=== PATIENT | female | born 2000 | race Caucasian/White ===

== ENCOUNTER 2020-06-09 17:50 | Emergency (ER) | payer OTHER, SELFPAY ==
[2020-06-09 18:15] VITALS: BP 124/75; PULSE 99; RESP 16; TEMP 37.2; O2SAT 98
--- NOTE | 2020-06-09 18:15 | DI.RAD.S_ITS ---
PROCEDURE: XR CHEST 2V INDICATIONS: shortness of breath TECHNIQUE: 2 views of the chest were acquired. COMPARISON: None. FINDINGS: Surgical changes and devices: None. Lungs and pleura: Lungs are clear. No pleural effusions or pneumothorax. Mediastinum: Mediastinal contours are normal. Heart size is normal. Bones and chest wall: No suspicious bony abnormalities. Minimal levoconvex scoliotic curvature is seen. Soft tissues appear unremarkable. IMPRESSION: Clear lungs. No infiltrate or pneumothorax. Dictated by: Romulo Liz M.D. on 06/09/2020 at 17:31 Approved by: Romulo Liz M.D. on 06/09/2020 at 17:32
--- NOTE | 2020-06-09 20:09 | ED.URI ---
HPI - URI/Sore Throat <YOLIS Diaz - Last Filed: 06/10/20 00:18> General Chief Complaint: Upper Respiratory Symptoms Stated Complaint: cough,does not know what it is. Time Seen by Provider: 06/09/20 19:34 Source: patient Mode of arrival: Ambulatory Limitations: no limitations History of Present Illness HPI Narrative: This is a 20-year-old female, nonsmoker, who has noncontributing medical history presents to ED with her spouse with chief complain of nonproductive dry cough for 2 weeks which became worse for last 1 week patient specially during nights. Patient reports her cough was so bad today she had to leave work. Patient denies fever, chills, nausea or vomiting, postnasal drips. Patient denies history of asthma. Patient is new in town since she moved from [place] in February to [place]. Patient denies sore throat, runny nose, ear pain, diarrhea, postnasal drips or chest pain. [place] 1 week ago with negative test result. Patient denies contact with Covid 19 positive patient. LMP last than 2 weeks ago. No primary care physician at this time. Related Data Previous Rx's Medication Instructions Recorded benzonatate [Tessalon Perles] 100 mg PO TID PRN #10 cap 06/09/20 Allergies Allergy/AdvReac Type Severity Reaction Status Date / Time No Known Drug Allergies Allergy Verified 06/09/20 18:17 Review of Systems <YOLIS Diaz - Last Filed: 06/10/20 00:18> Review of Systems Narrative: General: Denies fever, chills, fatigue, malaise, sweats. HEENT: Denies sinus pain, ear pain, sore throat, difficulty swallowing, dizziness. Respiratory: See HPI Cardiovascular: Denies chest pain, palpitations, orthopnea, edema. Gastrointestinal: Denies nausea, vomiting, abdominal pain, diarrhea, constipation, melena. : Denies dysuria, frequency, incontinence, hematuria, urinary retention. Musculoskeletal: Denies weakness, joint pain or bony pain. Skin: Denies rash, skin lesions, or other. Neurologic: Denies weakness, headache, numbness, change in speech, confusion, seizures, incoordination. Psychiatric: No concerning psychosocial issues. 12-point review of systems is negative except for those stated above. Patient History <YOLIS Diaz - Last Filed: 06/10/20 00:18> Social History Smoking Status: Never smoker Smoking Status: Never smoker alcohol intake frequency: 0-2 drinks per day Substance Use Type: does not use Exam <YOLIS Diaz - Last Filed: 06/10/20 00:18> Narrative Exam Narrative: GEN: Alert, oriented x 3, well appearing and nourished, and in no acute distress. Head: Normal cephalic, atraumatic. No scalp or temporal tenderness, palpable mass or rash. EYES: Pupils are equal, round, and reactive to light and accommodation. Extraocular muscles are intact bilaterally. There is no subconjunctival hemorrhage, exudate and sclera non-icteric. ENT: Bilateral auditory canals semi occluded with cerumen, tympanic membranes clear. Hearing grossly intact. Nose without bleeding, purulent discharge or deviation. Facial sinuses nontender to palpate. Mucous membrane moist, no mucosal lesion. Throat without erythema, tonsillar hypertrophy or exudate. Uvula in midline, airway patent. Neck: Trachea in midline. No JVD, non-tender without lymphadenopathy. No masses or thyroid megaly. Supple, non-tender and no meningeal signs. CARDIAC: Normal regular rate and rhythm without murmurs, gallops, or rubs. No chest wall tenderness. No peripheral edema, cyanosis or pallor. Capillary refill is less than 2 seconds. RESPIRATORY: Lungs are clear to auscultate bilaterally. No cough, wheezes, rales, or rhonchi. No stridor, respiratory distress, increase work of breathing, or accessary muscle used. ABD: Abdomen soft, nontender and non-distended. No guarding or rebound tenderness to palpate. Bowel sounds are normal in all 4 quadrants. There is no palpable masses or organomegaly. EXT: Full painless ROM of all extremities with no loss of sensation, strength, effusion or edema. SKIN: Warm, dry, normal color for patient. No erythema, lesions or rash over visible areas. BACK: Nontender without deformity or crepitance. No flank tenderness. NEUROLOGICAL: Alert and oriented to place, time and person. Sensation and motor function intact bilaterally. No facial droops, dysphasia. PSYCHIATRIC: Good judgement and reason, without hallucinations, abnormal affect or abnormal behaviors during the examination. Patient is not suicidal. Initial Vital Signs Initial Vital Signs: Vital Signs Temperature 98.9 F 06/09/20 18:15 Pulse Rate 99 H 06/09/20 18:15 Respiratory Rate 16 06/09/20 18:15 Blood Pressure 124/75 06/09/20 18:15 Pulse Oximetry 98 06/09/20 18:15 <Mario Morales MD - Last Filed: 06/10/20 04:28> Initial Vital Signs Initial Vital Signs: Vital Signs Temperature 98.9 F 06/09/20 18:15 Pulse Rate 99 H 06/09/20 18:15 Respiratory Rate 16 06/09/20 18:15 Blood Pressure 124/75 06/09/20 18:15 Pulse Oximetry 98 06/09/20 18:15 Scores <YOLIS Diaz - Last Filed: 06/10/20 00:18> GCS Scroggins coma scale eye opening: Spontaneous Scroggins coma scale verbal response: Orientated Scroggins coma scale motor response: Obey commands Scroggins coma scale total score: 15 Course <YOLIS Diaz - Last Filed: 06/10/20 00:18> Orders Ordered: Discontinued Medications Albuterol (Ventolin Hfa Prepack) 1 box MISC SEEINSTR ONE Stop: 06/09/20 20:06 Last Admin: 06/09/20 20:18 Dose: 1 box Documented by: JOSEAULT Benzonatate (Tessalon Perles) 100 mg PO NOW ONE Stop: 06/09/20 20:06 Last Admin: 06/09/20 20:28 Dose: 100 mg Documented by: PAVAN Lidocaine HCl (Xylocaine 1%) 1 ml SUBCUT NOW ONE Stop: 06/09/20 19:52 Last Admin: 06/09/20 20:39 Dose: Not Given Documented by: AIDEN Vital Signs Vital signs: Vital Signs - 8 hr 06/09/20 20:51 Temperature 98.2 F Pulse Rate 87 Respiratory Rate 20 Blood Pressure 128/56 L Pulse Oximetry 97 <Mario Morales MD - Last Filed: 06/10/20 04:28> Orders Ordered: Discontinued Medications Albuterol (Ventolin Hfa Prepack) 1 box MISC SEEINSTR ONE Stop: 06/09/20 20:06 Last Admin: 06/09/20 20:18 Dose: 1 box Documented by: TEJAL Benzonatate (Tessalon Perles) 100 mg PO NOW ONE Stop: 06/09/20 20:06 Last Admin: 06/09/20 20:28 Dose: 100 mg Documented by: PAVAN Lidocaine HCl (Xylocaine 1%) 1 ml SUBCUT NOW ONE Stop: 06/09/20 19:52 Last Admin: 06/09/20 20:39 Dose: Not Given Documented by: AIDEN Vital Signs Vital signs: Vital Signs - 8 hr 06/09/20 20:51 Temperature 98.2 F Pulse Rate 87 Respiratory Rate 20 Blood Pressure 128/56 L Pulse Oximetry 97 MDM - URI/Sore Throat <Miguel YOLIS Guthrie - Last Filed: 06/10/20 00:18> Differential Diagnosis Differential diagnosis: Likely upper respiratory infection, viral infection, bronchitis and other (Allergy, Covid 19) Medical Records Attestation: I reviewed the patient's medical records. Imaging Data Chest x-ray: Radiologist's Impression: [address] [address] XRay Report Signed Patient: Rosemary Ribeiro#: [id number] : 2000Acct:[id number] Age/Sex: 20 / FDate of Service: 06/09/20 Loc: ED Accession Number: [id number] Procedure: XR chest 2V Ordering Provider: Nell Garibay MD PROCEDURE: XR CHEST 2V INDICATIONS: shortness of breath TECHNIQUE: 2 views of the chest were acquired. COMPARISON: None. FINDINGS: Surgical changes and devices: None. Lungs and pleura: Lungs are clear. No pleural effusions or pneumothorax. Mediastinum: Mediastinal contours are normal. Heart size is normal. Bones and chest wall: No suspicious bony abnormalities. Minimal levoconvex scoliotic curvature is seen. Soft tissues appear unremarkable. IMPRESSION: Clear lungs. No infiltrate or pneumothorax. Dictated by: Romulo Liz M.D. on 06/09/2020 at 17:31 Approved by: Romulo Liz M.D. on 06/09/2020 at 17:32 MDM Narrative Medical decision making narrative: This is a 20-year-old female who recently moved to [place] in February presents to ED with nonproductive dry cough for last 2 weeks which became worse last week especially during nights. Patient denies constitutional symptoms. Patient is not toxic up. Physical exam is unremarkable with clear lung sounds bilaterally with easy breathing. Patient had Covid test done about a week ago with negative test result. Patient does not have a history of asthma. Considered environmental allergy since patient is new to [facility] and no other URI symptoms reported. The patient and spouse inclined for repeating Covid test. Informed patient test results will be back in 2-5 minutes and will receive a phone call from ED and in the meantime to practice self quarantine with good hand hygiene practice. Patient treated as bronchitis this time with albuterol inhaler with a spacer and teaching was done by RT. Patient reports her symptoms improved after the albuterol. Also patient discharged to home with Tessalon cough pill. Patient advised to increase hydration and to take warm honey water for her symptoms. Return precautions were discussed with patient and patient verbalized understanding in agreement with treatment plan. Discharge Plan Departure Patient Disposition: Home Clinical Impression: Bronchitis, Cough Discharge Date/Time: 06/09/20 20:52 Instructions: DI for Acute Bronchitis, DI for COVID-19 (Suspected or Confirmed ) Activity Restrictions/Additional Instructions: You have been diagnosed with [cough likely from bronchitis. You were provided with albuterol inhaler and a spacer and medicated with Tessalon pill for cough. Also, Considered seasonal allergies since you are new in [facility] here. Covid swab is done tonight and you will receive a phone call with the resulted in next 2-5 days. Please use precautions for COVID-19 with self quarantine and using good hand hygiene.]. What to do: *Take your medications as directed. Please use albuterol inhaler with a spacer 2 puffs every 4 hours as needed for excessive cough, chest tightness, wheezing. Tessalon as needed for cough. Warm honey water helps with cough as well. *Follow up with your primary care provider in 2-3 days, call for an appointment. Let them know you were seen in the ED and that we asked you to be seen in follow up. *Return to ED if you have any new, worsening, or concerning symptoms, such as [chest pain, breathing difficulty, fever, productive cough, unable to tolerate fluids or any acute concerns.]. Prescriptions: New benzonatate [Tessalon Perles] 100 mg capsule 100 mg PO TID PRN (Reason: cough) Qty: 10 RF: 0 Referrals: [facility] [Outside] <Mario Morales MD - Last Filed: 06/10/20 04:28> Cosign ED Attending Cosignature Attestation: I was immediately available in the department for consultation. This documentation has been reviewed and I agree with assessment and plan. Supervised by Mario Morales MD
[2020-06-09 20:18] VITALS: RESP 16
[2020-06-09] MEDS: ALBUTEROL HFA PREPACK 1 BOX MISC (20:18)
[2020-06-09] MEDS: BENZONATATE 100 MG CAPSULE PO (20:28)
[2020-06-09 20:51] VITALS: BP 128/56; PULSE 87; RESP 20; TEMP 36.8; O2SAT 97
[2020-06-11 12:12] LABS: COVID19 Sendout Not Detected (Not Detected)
== END 2020-06-09 20:52 | disposition home or self-care (01) ==
PROVIDERS: Emergency Provider Nurse Practitioner Family
DX: J40 Bronchitis, not specified as acute or chronic (principal)
CPT/HCPCS: 71046; 87635; 94640; 99283

== ENCOUNTER 2021-04-27 13:17 | Observation (INO) | payer OTHER, SELFPAY ==
[2021-04-27 13:26] VITALS: BP 126/74; PULSE 90; RESP 16; TEMP 37.3; O2SAT 97
[2021-04-27 13:53] LABS: Add Manual Diff / Slide Review NO; Basophils Absolute Auto 0 /uL (0-100); Basophils Percent Auto 0.2 % (0-2); Eosinophils Absolute Auto 0 /uL (0-450); Eosinophils Percent Auto 0.2 % (2-4); Hematocrit 43.2 % (36-46); Hemoglobin 14.2 g/dL (12.0-16.0); Lymphocytes Absolute Auto 1200 /uL (1100-4500); Lymphocytes Percent Auto 8.3 % (25-40); Mean Corpuscular HGB Conc 32.9 % (30-36); Mean Corpuscular Hemoglobin 30.4 PG (26-34); Mean Corpuscular Volume 92.4 fL (80-100); Monocytes Absolute Auto 900 /uL (0-900); Monocytes Percent Auto 6.3 % (3-14); Neutrophils Absolute Auto 12200 /uL (1500-7000); Platelet Count 262 X10^3/uL (150-400); Red Blood Cell Count 4.67 X10^6/uL (4.0-5.2); Red Cell Distribution Width 13.2 % (11.6-14.8); White Blood Cell Count 14.4 X10^3/uL (4.5-11.0)
[2021-04-27 14:04] LABS: Alanine Aminotransferase 16 IU/L (<35); Albumin 4.7 g/dL (3.5-5.0); Albumin Globulin Ratio 1.5 (1.0-2.8); Alkaline Phosphatase 51 U/L (38-126); Aspartate Aminotransferase 27 IU/L (14-36); BUN Creatinine Ratio 15.4 (6-22); Bilirubin Total 0.7 mg/dL (0.2-1.3); Blood Urea Nitrogen 10 mg/dL (7-17); Carbon Dioxide 24 mmol/L (22-32); Chloride 105 mmol/L (98-107); Estimated Glomerular Filt Rate > 60.0 mL/min (>60); Globulin 3.2 g/dL (1.7-4.1); Glucose 112 mg/dL (70-100); HEMOLYSIS < 15 (0-50); Lipase 70 U/L (23-300); Potassium 3.9 mmol/L (3.4-5.1); Sodium 139 mmol/L (137-145); Total Protein 7.9 g/dL (6.3-8.2)
[2021-04-27] MEDS: ONDANSETRON 4 MG/2 ML INJ IV (15:19)
[2021-04-27] MEDS: SODIUM CHLORIDE 0.9% 1,000 ML 1000 ML IV (15:20)
--- NOTE | 2021-04-27 15:46 | ED_ITS ---
HPI - Abdominal Pain General Chief Complaint: Abdominal Pain Stated Complaint: lower right abdominal pain, started last night Time Seen by Provider: 04/27/21 15:42 Source: patient Mode of arrival: Ambulatory History of Present Illness HPI narrative: Patient is a 20-year-old female who presents with right lower quadrant pain. She says started last evening she noticed it her got home and helped her. She says she was unable to sleep last night due to the pain. She however tried to get up and go to work. She denies any fever or chills. She feels slightly nauseous no vomiting. No diarrhea. She says she thought it was gas but it is not. Nothing makes it better or worse. Related Data Previous Rx's Medication Instructions Recorded benzonatate 100 mg capsule 100 mg PO TID PRN #10 cap 06/09/20 (Regino Rolon) Allergies Allergy/AdvReac Type Severity Reaction Status Date / Time No Known Drug Allergies Allergy Verified 06/09/20 18:17 Review of Systems Review of Systems Narrative: GENERAL: Denies chills, fatigue, malaise, fever, sweats, travel HEENT: Denies sinus pain, ear pain, sore throat, difficulty swallowing, neck pain RESPIRATORY: Denies dyspnea, cough, wheezing, hemoptysis, sputum. CARDIOVASCULAR: Denies chest pain, palpitations, orthopnea, edema GASTROINTESTINAL: See HPI : Denies dysuria, frequency, incontinence, hematuria, urinary retention, flank pain. MUSCULOSKELETAL: Denies weakness, joint pain, or bony pain SKIN: No rash, no erythema, no pruritus NEUROLOGIC: Denies weakness, dizziness, headache, numbness, change in speech, confusion PSYCHIATRIC: No concerning psychosocial issues. 12 point review of systems is negative except for those stated above and HPI Patient History Social History Smoking Status: Never smoker Smoking Status: Never smoker alcohol intake frequency: 0-2 drinks per day Substance Use Type: does not use Exam Initial Vital Signs Initial Vital Signs: Vital Signs Temperature 99.2 F 04/27/21 13:26 Pulse Rate 90 04/27/21 13:26 Respiratory Rate 16 04/27/21 13:26 Blood Pressure 126/74 04/27/21 13:26 Pulse Oximetry 97 04/27/21 13:26 GENERAL: Alert 25-year-old female appears uncomfortable but in no acute distress HEENT: Head atraumatic,EOMI, pupils reactive, face symmetric, moist mucous membr anes CARDIOVASCULAR: Regular rate and rhythm without murmurs, rubs or gallops. RESPIRATORY: Breath sounds equal bilaterally, no wheezes rales or rhonchi. ABDOMEN: Soft, right lower quadrant tenderness no guarding no rebound negative Reeves sign : No CVA tenderness EXTREMITIES: Normal range of motion, no clubbing or edema. Neurovascularly intact NEUROLOGICAL: Alert and oriented x4.Normal gait and speech. SKIN: Warm, dry, no laceration, no petechiae, no rashes or lesions. Course Orders Ordered: ED Orders 04/27/21 13:40 Complete Blood Count AUTO DIFF Stat Comprehensive Metabolic Panel Stat Lipase Stat 04/27/21 15:46 CT abdomen pelvis w con Stat 04/27/21 16:57 COVID19 -Nasal swab/Pre-Proc Stat Discontinued Medications Sodium Chloride (Normal Saline 0.9%) 1,000 mls @ 1,000 mls/hr IV BOLUS ONE Stop: 04/27/21 16:03 Last Infusion: 04/27/21 16:10 Dose: 0 mls/hr Documented by: Admin: 04/27/21 15:20 Dose: 1,000 mls/hr Documented by: BEAR Ampicillin Sodium/Sulbactam (Sodium 3 gm/ Sodium Chloride) 100 mls @ 100 mls/hr IV NOW ONE Stop: 04/27/21 16:58 Ondansetron HCl (Ondansetron 4 Mg/2 Ml Inj) 4 mg IV NOW ONE Stop: 04/27/21 15:05 Last Admin: 04/27/21 15:19 Dose: 4 mg Documented by: BEAR Vital Signs Vital signs: Vital Signs - 8 hr 04/27/21 13:26 04/27/21 17:01 Temperature 99.2 F Pulse Rate 90 112 H Respiratory Rate 16 16 Blood Pressure 126/74 120/57 L Pulse Oximetry 97 98 MDM - Abdominal Pain Lab Data Result diagrams: 04/27/21 13:40 04/27/21 13:40 Labs: Lab Results 04/27/21 04/27/21 Range/Units 13:40 13:40 WBC 14.4 H (4.5-11.0) X10^3/uL RBC 4.67 (4.0-5.2) X10^6/uL Hgb 14.2 (12.0-16.0) g/dL Hct 43.2 (36-46) % MCV 92.4 (80-100) fL MCH 30.4 (26-34) PG MCHC 32.9 (30-36) % RDW 13.2 (11.6-14.8) % Plt Count 262 (150-400) X10^3/uL Neut % (Auto) 85.0 H (50-75) % Lymph % (Auto) 8.3 L (25-40) % [place] % (Auto) 6.3 (3-14) % Eos % (Auto) 0.2 L (2-4) % Baso % (Auto) 0.2 (0-2) % Neut # (Auto) 06303 H (0184-8358) /uL Lymph # (Auto) 1200 (5946-8832) /uL [place] # (Auto) 900 (0-900) /uL Eos # (Auto) 0 (0-450) /uL Baso # (Auto) 0 (0-100) /uL Sodium 139 (137-145) mmol/L Potassium 3.9 (3.4-5.1) mmol/L Chloride 105 (98-107) mmol/L Carbon Dioxide 24 (22-32) mmol/L BUN 10 (7-17) mg/dL Creatinine 0.65 (0.52-1.04) mg/dL Estimated GFR > 60.0 (>60) mL/min BUN/Creatinine Ratio 15.4 (6-22) Glucose 112 H (70-100) mg/dL Calcium 10.0 (8.4-10.2) mg/dL Total Bilirubin 0.7 (0.2-1.3) mg/dL AST 27 (14-36) IU/L ALT 16 (<35) IU/L Alkaline Phosphatase 51 (38-126) U/L Total Protein 7.9 (6.3-8.2) g/dL Albumin 4.7 (3.5-5.0) g/dL Globulin 3.2 (1.7-4.1) g/dL Albumin/Globulin Ratio 1.5 (1.0-2.8) Lipase 70 (23-300) U/L Point of care testing: Point of Care Testing Test Results Negative Urine Dip Bedside Urine Glucose Negative Bedside Urine Bilirubin - Negative Bedside Urine Ketone - Negative Urine Specific [place] 1.020 Bedside Urine Occult Blood - Negative Bedside Urine pH 6 Bedside Urine Protein - Negative Bedside Urine Urobilinogen - Negative Bedside Urine Nitrite - Negative Bedside Urine Leukocytes - Negative Esterase Imaging Data CT scan - abdomen/pelvis: Radiologist's Impression: PROCEDURE: CT ABDOMEN PELVIS W CON INDICATIONS: rlq pain TECHNIQUE: After the administration of intravenous contrast, axial sections acquired from the lung bases to the pubic symphysis. Coronal and sagittal reformats were performed. For radiation dose reduction, the following was used: automated exposure control, adjustment of mA and/or kV according to patient size. COMPARISON: None. FINDINGS: Image quality: Excellent. Lung bases: Unremarkable. Heart: No significant findings. ABDOMEN: Liver: 8 mm inferolateral right hepatic cyst. Punctate similar focus in the posterior superior right lobe on series 2, image 15, too small to definitively characterize. Liver is overall large with mild steatosis. Gallbladder: Unremarkable. Biliary ducts: Unremarkable. Pancreas: Unremarkable. Spleen: Unremarkable. Adrenal Glands: Unremarkable. Kidneys and Ureters: Unremarkable. Stomach and Bowel: Stomach, small bowel loops, and colon are unremarkable. The appendix is enlarged measuring 7 mm. No visual perforation. Minimal surrounding inflammatory change. No appendicoliths. Peritoneum: Mild dependent pelvic fluid. Ventral Wall: No hernias. Abdominal Nodes: No retroperitoneal or mesenteric adenopathy by size criteria. Vessels: Aorta and inferior vena cava are normal in size. PELVIS: Pelvic Organs: Unremarkable. Bladder: Unremarkable. Pelvic Nodes: No enlarged lymph nodes. Miscellaneous: No hernias are seen. Bones: Unremarkable. IMPRESSION: 1. Enlarged appendix without visualization of perforation or appendicoliths. There is minimal periappendiceal inflammation. Findings are suggestive early appendicitis. The above findings were discussed with Dr. Sumaya Guerrero on 04/27/2021 at 4 30 3:33 p.m. Dictated by: Yessica Blake M.D. on 04/27/2021 at 16:29 Approved by: Yessica Blake M.D. on 04/27/2021 at 16:34 MDM Narrative Medical decision making narrative: Patient's history and presentation concerning for appendicitis. CT does confirm appendicitis leukocytosis of 14. Dr. Briceno notified and in PT to seen evaluated patient. Patient will be admitted with antibiotics for observation and discussed surgery options. Discharge Plan Departure Patient Disposition: Admitted as Observation Clinical Impression: Acute appendicitis Qualifiers: Acute appendicitis type: with localized peritonitis Appendicitis gangrene presence: without gangrene Appendicitis abscess presence: without abscess
[2021-04-27 17:01] VITALS: BP 120/57; PULSE 112; RESP 16; O2SAT 98
[2021-04-27 17:30] LABS: COVID19 -Nasal RAPID Negative (Negative)
[2021-04-27] MEDS: PIPERACILLIN/TAZO 3.375 GM in SODIUM CHLORIDE 0.9% 100 ML 25 ML IV (17:52)
[2021-04-27 19:30] VITALS: BP 107/67; PULSE 102; RESP 18; TEMP 37.1; O2SAT 99
[2021-04-27 19:36] VITALS: BMI 20.5
[2021-04-27] MEDS: KETOROLAC 30 MG/ML VIAL 15 MG IV (20:08)
[2021-04-27] MEDS: SODIUM CHLORIDE 0.9% 1,000 ML 100 ML IV (20:54)
[2021-04-27] MEDS: AMPICILLIN/SULBACTAM 3 GM 3 GM in SODIUM CHLORIDE 0.9% 100 ML IV (21:01)
--- NOTE | 2021-04-27 21:20 | PC.NURSE ---
Pt Arrived from ED alert/oriented Lungs clear, SpO2 98% RA Some mid abdominal discomfort, Med w/Ketorlac w/ good relief IVF of NS infusing into RFA as per orders. Pt scheduled for appy some time tomorrow. Pt & orineted to roon & call system. Call light w/in reach, pt independent in room and call appropriately Continue w/plan of care.
[2021-04-28] VITALS (13 sets, daily range): BP systolic 94–110; BP diastolic 53–73; PULSE 78–109; RESP 11–18; TEMP 36.6–37.1; O2SAT 95–100; BMI 20.5
--- NOTE | 2021-04-28 | PATH_ITS ---
[facility] Accession Number: [id number] . 01 Material submitted: . appendix - APPENDIX . 02 Diagnosis: Appendix, Appendectomy: Acute appendicitis with serositis. No evidence of neoplasm. MRV 05/01/2021 1641 Local . 02 Electronically signed: . Tico Nieves MD, PhD, Pathologist NPI- [id number] . 01 Gross description: . The specimen is received in formalin and labeled with appendix. It consists of a 7.7 cm in length x 0.6 cm in diameter intact appendix, stapled at one end. The serosa is pink-thorpe, diffusely congested with prominent vasculature. The resection margin is inked green and shaved. Sectioning reveals yellow-thorpe focally hemorrhagic mucosa, a lumen that dilates to 0.2 cm in diameter, and gee that average 0.3 cm in thickness. Water/Wastewater Project Manager sections are submitted. . Summary of Sections: A1 = Appendix, shave resection margin and bisected tip, three pieces. A2 = Appendix, serially sectioned, territory sales representative, four pieces. ([id number]) /[facility] 04/29/20211651 Local . 02 Pathologist provided ICD-10: K35.80 . 02 CPT . 288243 Performed at: 01 [facility] [address], [place], [place] [id number] MD Chucky Palencia MD Phone: [phone] Performed at: 02 [facility] [address] [place], [place] [id number] MD Linette Hernandez MD Phone: [phone]
[2021-04-28] MEDS: PIPERACILLIN/TAZO 3.375 GM in SODIUM CHLORIDE 0.9% 100 ML 25 ML IV ×3 (00:34→17:44)
[2021-04-28] MEDS: KETOROLAC 30 MG/ML VIAL 15 MG IV ×5 (01:33→23:39)
[2021-04-28 06:02] LABS: Add Manual Diff / Slide Review NO; Basophils Absolute Auto 100 /uL (0-100); Basophils Percent Auto 0.6 % (0-2); Eosinophils Absolute Auto 100 /uL (0-450); Eosinophils Percent Auto 0.9 % (2-4); Hemoglobin 12.7 g/dL (12.0-16.0); Lymphocytes Absolute Auto 2200 /uL (1100-4500); Lymphocytes Percent Auto 24.7 % (25-40); Mean Corpuscular HGB Conc 32.7 % (30-36); Mean Corpuscular Hemoglobin 30.6 PG (26-34); Mean Corpuscular Volume 93.4 fL (80-100); Monocytes Absolute Auto 1000 /uL (0-900); Monocytes Percent Auto 11.2 % (3-14); Neutrophils Absolute Auto 5700 /uL (1500-7000); Neutrophils Percent Auto 62.6 % (50-75); Platelet Count 232 X10^3/uL (150-400); Red Blood Cell Count 4.17 X10^6/uL (4.0-5.2); Red Cell Distribution Width 13.2 % (11.6-14.8); White Blood Cell Count 9.1 X10^3/uL (4.5-11.0)
--- NOTE | 2021-04-28 10:00 | PM.HP.1 ---
History of Present Illness History of Present Illness Date Patient Seen: 04/27/21 Time Patient Seen: 15:30 Chief complaint: lower right abdominal pain, started last night Narrative: Pain persisted and worsened during the day. Focal RLQ, sharp and dull. Better with pain meds. NO emesis or diarrhea, no fever. No previous episodes. CT in ED consistent with early appendicitis. Patient History Family & Social History Social History: household members spouse Prior Living Arrangements Apartment/Condo Tobacco & Substance use: Smoking Status Never smoker alcohol intake frequency a few times a month Substance Use Type does not use Meds Home Medications and Allergies Home Medications Medication Instructions Recorded Confirmed Type benzonatate 100 mg capsule 100 mg PO TID PRN #10 cap 06/09/20 04/27/21 Rx (Tessalon Perles) Allergies Allergy/AdvReac Type Severity Reaction Status Date / Time No Known Drug Allergies Allergy Verified 06/09/20 18:17 Review of Systems Review of Systems ROS: Yes All systems reviewed with the patient and are negative except as otherwise documented Exam Vital Signs (past 8 hours): - 04/28/21 08:44 04/28/21 09:42 Temperature 98.8 F Pulse Rate 82 83 Respiratory Rate 16 Blood Pressure 98/57 L Pulse Oximetry 100 98 Oxygen Delivery Method Room Air Oxygen Flow Rate 0 Const General: cooperative and healthy appearing Nutritional Appearance: average body habitus Orientation: alert and oriented x3 HENMT Head: normal to inspection Ears: hearing grossly normal bilaterally Eyes General: appearance normal, both eyes and all related structures Sclera: sclerae normal Neck Neck: trachea midline Chest Chest: normal inspection of the chest Resp Effort & Inspection: normal respiratory effort and able to speak in complete sentences Cardio Rate: regular rate Rhythm: regular rhythm GI Palpation: soft Skin General: no rashes or lesions noted Neuro General: patient alert, patient awake and patient oriented x3 Cognition: normal cognition Extrem General: full ROM Psych Appearance: grossly normal Judgment: judgment good Objective Labs Result Diagrams: 04/28/21 04:52 04/27/21 13:40 Labs: Laboratory Results - last 24 hr 04/27/21 04/27/21 04/27/21 13:40 13:40 16:50 WBC 14.4 H RBC 4.67 Hgb 14.2 Hct 43.2 MCV 92.4 MCH 30.4 MCHC 32.9 RDW 13.2 Plt Count 262 Neut % (Auto) 85.0 H Lymph % (Auto) 8.3 L [place] % (Auto) 6.3 Eos % (Auto) 0.2 L Baso % (Auto) 0.2 Neut # (Auto) 15430 H Lymph # (Auto) 1200 [place] # (Auto) 900 Eos # (Auto) 0 Baso # (Auto) 0 Sodium 139 Potassium 3.9 Chloride 105 Carbon Dioxide 24 BUN 10 Creatinine 0.65 Estimated GFR > 60.0 BUN/Creatinine Ratio 15.4 Glucose 112 H Calcium 10.0 Total Bilirubin 0.7 AST 27 ALT 16 Alkaline Phosphatase 51 Total Protein 7.9 Albumin 4.7 Globulin 3.2 Albumin/Globulin Ratio 1.5 Lipase 70 SARS-CoV-2 (PCR) Negative 04/28/21 04:52 WBC 9.1 RBC 4.17 Hgb 12.7 Hct 39.0 MCV 93.4 MCH 30.6 MCHC 32.7 RDW 13.2 Plt Count 232 Neut % (Auto) 62.6 D Lymph % (Auto) 24.7 L [place] % (Auto) 11.2 Eos % (Auto) 0.9 L Baso % (Auto) 0.6 Neut # (Auto) 5700 Lymph # (Auto) 2200 [place] # (Auto) 1000 H Eos # (Auto) 100 Baso # (Auto) 100 Sodium Potassium Chloride Carbon Dioxide BUN Creatinine Estimated GFR BUN/Creatinine Ratio Glucose Calcium Total Bilirubin AST ALT Alkaline Phosphatase Total Protein Albumin Globulin Albumin/Globulin Ratio Lipase SARS-CoV-2 (PCR) Assessment & Plan Assessment & Plan narrative: acute appendicitis w/o fecal lith. Given to option of medical management vs surgery. She was undecided. Admitted for observation and IV antibiotics. COVID-19 COVID-19 status: Negative Time Spent With Patient Time with patient: 15-24 minutes Quality VTE Deep Vein Thrombosis/Pulmonary Embolism Present on Admission: No
--- NOTE | 2021-04-28 10:08 | P.PN_ITS ---
Subjective Subjective Date Patient Seen: 04/28/21 Time Patient Seen: 10:08 Exam Vital Signs (past 8 hours): - 04/28/21 08:44 04/28/21 09:42 Temperature 98.8 F Pulse Rate 82 83 Respiratory Rate 16 Blood Pressure 98/57 L Pulse Oximetry 100 98 Oxygen Delivery Method Room Air Oxygen Flow Rate 0 Const General: cooperative GI Inspection: normal to inspection Palpation: soft Skin General: no rashes or lesions noted Objective Labs Result Diagrams: 04/28/21 04:52 04/27/21 13:40 Labs: Laboratory Results - last 24 hr 04/27/21 04/27/21 04/27/21 13:40 13:40 16:50 WBC 14.4 H RBC 4.67 Hgb 14.2 Hct 43.2 MCV 92.4 MCH 30.4 MCHC 32.9 RDW 13.2 Plt Count 262 Neut % (Auto) 85.0 H Lymph % (Auto) 8.3 L [place] % (Auto) 6.3 Eos % (Auto) 0.2 L Baso % (Auto) 0.2 Neut # (Auto) 09343 H Lymph # (Auto) 1200 [place] # (Auto) 900 Eos # (Auto) 0 Baso # (Auto) 0 Sodium 139 Potassium 3.9 Chloride 105 Carbon Dioxide 24 BUN 10 Creatinine 0.65 Estimated GFR > 60.0 BUN/Creatinine Ratio 15.4 Glucose 112 H Calcium 10.0 Total Bilirubin 0.7 AST 27 ALT 16 Alkaline Phosphatase 51 Total Protein 7.9 Albumin 4.7 Globulin 3.2 Albumin/Globulin Ratio 1.5 Lipase 70 SARS-CoV-2 (PCR) Negative 04/28/21 04:52 WBC 9.1 RBC 4.17 Hgb 12.7 Hct 39.0 MCV 93.4 MCH 30.6 MCHC 32.7 RDW 13.2 Plt Count 232 Neut % (Auto) 62.6 D Lymph % (Auto) 24.7 L [place] % (Auto) 11.2 Eos % (Auto) 0.9 L Baso % (Auto) 0.6 Neut # (Auto) 5700 Lymph # (Auto) 2200 [place] # (Auto) 1000 H Eos # (Auto) 100 Baso # (Auto) 100 Sodium Potassium Chloride Carbon Dioxide BUN Creatinine Estimated GFR BUN/Creatinine Ratio Glucose Calcium Total Bilirubin AST ALT Alkaline Phosphatase Total Protein Albumin Globulin Albumin/Globulin Ratio Lipase SARS-CoV-2 (PCR) PFSH Social History household members: spouse Smoking Status: Never smoker Assessment & Plan Assessment & Plan narrative: responsive to antibiotics with no fever, normalization of WBC, decreased RLQ pain. She would however like to proceed with surgery. Time Spent With Patient Time with patient: 25 - 35 minutes Quality VTE Deep Vein Thrombosis/Pulmonary Embolism Present on Admission: No
[2021-04-28] MEDS: SODIUM CHLORIDE 0.9% 1,000 ML 100 ML IV (12:00)
--- NOTE | 2021-04-28 13:09 | SUR.OPER ---
Supine on padded OR bed, head on pillow, safety belt at thigh, left arm padded and tucked at side. Right arm secured on padded arm board <90 degrees abduction. Legs uncrossed. Padded footboard in place. Tape over blanket to secure lower legs.
[2021-04-28] MEDS: LACTATED RINGERS 1,000 ML 42 ML IV ×2 (13:29→15:47)
[2021-04-28] MEDS: BUPIVACAINE 0.25% W/ EPI 30 ML VIAL INJ (14:05)
--- NOTE | 2021-04-28 14:23 | PM.OP.1 ---
Operative Date/Time/Diagnoses Date of procedure: 04/28/21 Time of procedure: 14:23 Pre-op diagnosis: acute appendicitis Post-op diagnosis: same Procedure & Clinicians Procedure: lap appy Same procedure as scheduled: Yes Indications: acute appy Surgeon: Rosina Briceno Click Yes if Unassisted: Yes Anesthesia Type: General Operative Notes Findings: Stage I acute appendicitis laboratory Closure Type: primary Specimen(s): other (Appendix) Estimated Blood Loss (mL): 5 Blood products transfused: none Procedure in detail: Preop diagnosis: Acute appendicitis Postop diagnosis: Same Operative procedure: Laparoscopic appendectomy Surgeon: Venus Briceno MD Anesthetic: General with ET tube intubation along with local Findings: Stage I acute appendicitis inflammatory Procedure: Patient placed in a supine position. Prepped and draped in sterile fashion to expose her abdomen. Infraumbilical port site was placed using an open technique and a 12 mm port. Insufflation began all other ports were placed under direct vision including a 5 mm port in the suprapubic area and a 5 mm port in left lateral abdomen. Appendix identified lifted cephalad for exposure. Appendiceal mesentery was taken down with electrocautery. The base was healthy in nature and accepted a blue load MAREN stapling device. This amputated appendix was then placed into an Endo-Catch bag and pulled through the infraumbilical port site intact. Physiologic fluid was removed from the pelvis with suction. Area was monitored for bleeding prior to removal of all ports. Ports removed and closure began. Closure consisted of interrupted 0 Vicryl for fascial closure of the infraumbilical port site. Skin was closed with a running 4-0 Vicryl. Steri-Strips and sterile dressings were placed. Patient was awakened, extubated, taken to recovery room in stable condition. Needle, instrument, sponge counts were all correct. Blood loss: 5 mL Specimen: Appendix Post-operative Condition: stable Disposition: PACU Plan for aftercare: discharge home later today
[2021-04-28] MEDS: OXYCODONE IR 5 MG TABLET PO (14:50)
[2021-04-28] MEDS: ONDANSETRON 4 MG/2 ML INJ IV (14:50)
--- NOTE | 2021-04-28 14:59 | SUR.PHASEI ---
Attempted to call report to inpatient nurse and will call back in a few minutes. Patient resting quietly with eyes closed and is in no distress.
--- NOTE | 2021-04-28 15:51 | CM.DANOTE ---
DCP/Assessment: Reviewed chart. Patient is a 20yr old female admitted to [facility] with abdominal pain/appendicitis. Patient underwent lap appy today with Dr. Briceno. Primary payor is 1)[employer]. Patient off floor for procedure at time of visit. Per provider notes it is anticipated that patient will d/c home later today. P: Home. DAWNA Davis Discharge Planning/Care Management CM Discharge Assessment Start: 04/28/21 15:45 Freq: Status: Active Protocol: Document 04/28/21 15:46 KJS (Rec: 04/28/21 15:51 [id number]) Discharge Planning Assessment Assigned Electronic Scale Subassembler DAWNA Davis Contact Information Delfin Ribeiro (spouse) ph# Advance Directives? No History Provided By Medical Record Prior Living Arrangements Apartment/Condo Household Members spouse Type of transporation used prior to Drives own vehicle admit Independent with ADL's Yes Is patient alert and oriented? Yes Barriers to Discharge No Discharge Plan Home Transportation Arrangement Family to provide transport. Additional Comment No D/C needs anticipated. Review Status In Process Next Review Type Continued Stay Review
--- NOTE | 2021-04-28 16:02 | PM.OP.1 ---
Operative Date/Time/Diagnoses Date of procedure: 04/28/21 Time of procedure: 16:03 Pre-op diagnosis: acute appendicitis Post-op diagnosis: same Procedure & Clinicians Procedure: laparoscopic appendectomy Same procedure as scheduled: Yes Indications: acute appy Surgeon: Rosina Briceno Click Yes if Unassisted: Yes Anesthesia Type: General Operative Notes Findings: Acute on chronic appendicitis. Stage 2 suppurative Closure Type: primary Specimen(s): other (Appendix) Estimated Blood Loss (mL): 10 Blood products transfused: none Procedure in detail: Prep diagnosis: Appendicitis Postop diagnosis: Same Operative procedure: Laparoscopic appendectomy Surgeon: Venus Briceno MD Anesthetic: General with ET tube intubation with local Findings: Evidence of chronic on acute appendicitis. A suppurative stage II. Procedure: Patient is placed in a supine position. Prepped and draped in sterile fashion. Infraumbilical port site was placed using open technique a 12 mm port. Insufflation began and all other ports were placed under direct vision including a 5 mm port in the suprapubic area and a 5 mm port in the left lateral abdomen. Appendix was identified and from lateral attachments along to the dense inflammatory process associated with the terminal ileum. From there the mesentery of the appendix was taken down with electrocautery. The base the appendix was healthy although generous in size. A MAREN stapling device was used to empty the appendix. It was then placed into an Endo-Catch bag and pulled through the infraumbilical port site intact. The abdomen was suctioned clear of any residual physiologic fluid. Minimal bleeding. All suture lines and port sites were checked for bleeding prior to removal. Ports removed and closure began. Closure consisted of interrupted 0 Vicryl for fascial closure. Skin was closed a running 4-0 Vicryl. Steri-Strips and sterile dressings were placed. Patient was awakened, extubated, taken to recovery room in stable condition. Instrument, sponge, and needle counts were all correct. Blood loss: 10 mL Specimen: Appendix Complications: none Post-operative Condition: stable Disposition: PACU
[2021-04-28] MEDS: ACETAMINOPHEN 325 MG TABLET 650 MG PO (22:26)
[2021-04-29] VITALS: BP 97/45; PULSE 104; RESP 18; TEMP 36.8; O2SAT 99
[2021-04-29] MEDS: PIPERACILLIN/TAZO 3.375 GM in SODIUM CHLORIDE 0.9% 100 ML 25 ML IV ×2 (00:21→09:08)
[2021-04-29] MEDS: KETOROLAC 30 MG/ML VIAL 15 MG IV ×2 (06:01→11:12)
[2021-04-29 09:00] VITALS: BP 111/47; PULSE 77; RESP 16; TEMP 36.4; O2SAT 98
--- NOTE | 2021-04-29 12:41 | PC.NURSE ---
Pt is dressed and ready for discharge home with Spouse. IV removed. Has a fresh ice pack for placement on her abdomen for pain control. Pt declines lunch and states she will get some on the way home. Went over d/c instructions with Pt and Spouse-discussed d/c meds, time of last dose, reviewed stroke education, no driving while taking narcotics, showering, wound care, drink plenty of fluids to prevent constipation or dehydration, no lifting greater than 15 pounds for 4 weeks, signs and symptoms of infection and follow up. Pt and Spouse denied further questions and Pt was taken out via w/c by CARDIOVASC[facility] OPERATING ROOM NURSE to POV with Spouse and all belongings.
--- NOTE | 2021-05-05 19:49 | PC.NURSE ---
Late Entry; Ampicillin infusion initiated at 21:01, complete at 22:02.
== END 2021-04-29 12:45 | disposition home or self-care (01) ==
LOC: ED 16:57 → AC 17:40
PROVIDERS: Emergency Medicine; Admitting Provider Surgery; Emergency Provider Emergency Medicine; Referring Provider Emergency Medicine; Visit Provider Surgery
PROC: 0DTJ4ZZ Resection of Appendix, Percutaneous Endoscopic Approach (ICD-10-PCS; CPT 44970; principal; 2021-04-28 13:30)
DX: K35.80 Unspecified acute appendicitis (principal); Z20.822 Contact with and (suspected) exposure to COVID-19
CPT/HCPCS: 44970; 36415; 74177; 80053; 81003; 81025; 83690; 85014; 85025; 87635; 96365; 96366; 96367; 96375; 96376; 99219; 99284; C9803; G0378; J0295; J1100; J1885; J2250; J2405; J2543; J2704; J3010; Q9967

== ENCOUNTER 2021-05-03 13:36 | Emergency (ER) | payer OTHER, SELFPAY ==
[2021-05-03 13:45] VITALS: BP 129/73; PULSE 104; RESP 16; TEMP 36.7; O2SAT 99
--- NOTE | 2021-05-03 14:28 | ED.GENADULT ---
HPI - General Adult General Chief complaint: Dizziness Stated complaint: post op appendix- pain/dizzy/blood from anus. Time Seen by Provider: 05/03/21 14:00 Source: patient Mode of arrival: Ambulatory History of Present Illness HPI narrative: Patient is a 20-year-old female who less than 1 week ago underwent a laparoscopic appendectomy. She was discharged the next day after her surgery. She states that since that time she has had some episodes of lightheadedness especially when she was in the shower. No chest pain. She states that she was having quite a bit of abdominal discomfort until she had a bunch of gas last evening which then things improved. She woke up this morning and had a bowel movement which she states was normal for her. Was not constipated. Then when she wiped she did have blood on the paper. Related Data Previous Rx's Medication Instructions Recorded benzonatate 100 mg capsule 100 mg PO TID PRN #10 cap 06/09/20 (Tessalon Perlcheko) hydrocodone 10 mg-acetaminophen 1 tab PO Q4-6H PRN #14 tab 04/29/21 325 mg tablet Allergies Allergy/AdvReac Type Severity Reaction Status Date / Time No Known Drug Allergies Allergy Verified 05/03/21 13:49 Review of Systems Constitutional Constitutional: Denies fever(s) Cardiovascular Comments: No chest pain Respiratory Respiratory: Reports system reviewed and no additional complaints, except as documented Gastrointestinal Comments: Abdominal pain, blood in stool Genitourinary Comments: No dysuria Musculoskeletal Musculoskeletal: Reports system reviewed and no additional complaints, except as documented Integumentary/Breasts Skin/Breast: Reports system reviewed and no additional complaints, except as documented Neurologic Neurologic: Reports system reviewed and no additional complaints, except as documented Hematologic/Lymphatic On Anticoagulants: No Allergic/Immunologic Allergic/Immunologic: Reports system reviewed and no additional complaints, except as documented Patient History Medical History Healthy adult Surgical History (Updated 04/28/21 @ 13:28 by Estefanía Ndiaye RN) No history of previous surgery Social History household members: spouse Smoking Status: Never smoker alcohol intake: current Smoking Status: Never smoker alcohol intake frequency: a few times a month Substance Use Type: does not use Exam Initial Vital Signs Initial Vital Signs: Vital Signs Temperature 98.0 F 05/03/21 13:45 Pulse Rate 104 H 05/03/21 13:45 Respiratory Rate 16 05/03/21 13:45 Blood Pressure 129/73 05/03/21 13:45 Pulse Oximetry 99 05/03/21 13:45 Const General: cooperative and comfortable HENMT Head: normal to inspection and normocephalic Eyes General: appearance normal, both eyes and all related structures Resp Effort & Inspection: normal respiratory effort Auscultation: clear to auscultation bilaterally Cardio Rate: regular rate Rhythm: regular rhythm GI Inspection: normal to inspection Palpation: soft and No tender Auscultation: normal bowel sounds Skin Other: Surgical wounds on abdomen covered with bandages that are clean dry and intact. Neuro General: patient alert, patient awake and moves all extremities Extrem General: normal to inspection and capillary refill normal Psych Appearance: grossly normal and well kempt Course Orders Ordered: ED Orders 05/03/21 14:00 Basic Metabolic Panel Stat Complete Blood Count AUTO DIFF Stat Vital Signs Vital signs: Vital Signs - 8 hr 05/03/21 13:45 Temperature 98.0 F Pulse Rate 104 H Respiratory Rate 16 Blood Pressure 129/73 Pulse Oximetry 99 Medical Decision Making MDM Narrative Medical decision making narrative: Patient's vital signs are unremarkable. Labs are unremarkable. Have low suspicion that her lightheadedness is related to an arrhythmia. I suspect that this was related to the appendectomy in the anesthesia. Feel that we can hold on further workup of this. She has had 1 episode of blood when she wiped today. Have low suspicion for an acute GI bleed. This also very well could be related to her appendectomy. I feel that we can hold on further workup for now. Patient was given return precautions and follow-up instructions. She expressed understanding and agreement. Discharge Plan Departure Patient Disposition: Home Clinical Impression: Episodic lightheadedness, BRBPR (bright red blood per rectum) Instructions: DI for Dizziness-Nonvertigo Activity Restrictions/Additional Instructions: I suspect that all of your symptoms that she presented with today are related to your prior surgery. I recommend that you stay hydrated. Follow all the postoperative instructions given to you by the surgeon. Keep all of your scheduled follow-up appointments. Return to the emergency department for any new or worsening symptoms Prescriptions: No Action benzonatate [Tessalon Perles] 100 mg capsule 100 mg PO TID PRN (Reason: cough) Qty: 10 RF: 0 hydrocodone-acetaminophen 10-325 mg tablet 1 tab PO Q4-6H PRN (Reason: pain) Qty: 14 RF: 0
[2021-05-03 14:42] VITALS: BP 110/71; PULSE 90; RESP 16; O2SAT 98
== END 2021-05-03 14:43 | disposition home or self-care (01) ==
PROVIDERS: Emergency Provider Emergency Medicine
DX: R42 Dizziness and giddiness (principal); K62.5 Hemorrhage of anus and rectum
CPT/HCPCS: 99281